=== PATIENT | female | born 1995 | race Caucasian/White ===

== ENCOUNTER → 2020-07-12 | Outpatient (REF) | payer OTHER ==
[2020-07-12 17:31] LABS: HEMATOCRIT 37.9 % (36.0-47.0); HEMOGLOBIN 12.5 g/dl (12.0-15.5); MEAN CORPUSCULAR HEMOGLOBIN 30.7 pg (27.0-33.0); MEAN CORPUSCULAR VOLUME 93.1 fl (80.0-96.0); PLATELET COUNT, AUTOMATED 385 10^3/uL (150-450); RED BLOOD COUNT 4.07 10^6/uL (4.00-5.40); WHITE BLOOD COUNT 11.2 10^3/uL (4.0-10.0)
[2020-07-12 18:41] LABS: HIV 1&2 SCREEN CENTAUR NEGATIVE (NEGATIVE)
== END ==
LOC: M PLALAB 15:50
PROVIDERS: ATTEND Obstetrics & Gynecology
DX: Z34.91 Encounter for supervision of normal pregnancy, unspecified, first trimester (principal)

== ENCOUNTER 2020-07-21 19:11 | Emergency (ER) | payer OTHER ==
[~2020-07-21] VITALS: Ht 157.5 cm; Wt 74.5 kg
[2020-07-21] MEDS ORDERED: PRENTAB7 PO (19:16)
[2020-07-21] MEDS ORDERED: NS 1,000 ML IV ONE ×2 (19:45→23:15)
[2020-07-21] MEDS ORDERED: ONDANSETRON 4MG/2ML VIAL IV ONE (20:00)
[2020-07-21 20:42] LABS: BASO % 0.2 % (0.0-1.0); EOS % 0.1 % (0.0-3.0); HEMATOCRIT 35.8 % (36.0-47.0); HEMOGLOBIN 11.9 g/dl (12.0-15.5); LYMPH # 0.8 10^3/uL (1.5-5.0); MEAN CORPUSCULAR HEMOGLOBIN 29.2 pg (27.0-33.0); MEAN CORPUSCULAR HGB CONC 33.2 g/dl (32.0-36.5); MONO # 0.2 10^3/uL (0.0-0.8); MONO % 0.9 % (0.0-5.0); NEUTROPHILS # 15.2 10^3/uL (1.5-8.5); NEUTROPHILS % 93.4 % (36.0-66.0); PLATELET COUNT, AUTOMATED 344 10^3/uL (150-450); RED BLOOD COUNT 4.07 10^6/uL (4.00-5.40); WHITE BLOOD COUNT 16.3 10^3/uL (4.0-10.0)
[2020-07-21 21:00] LABS: INR 0.94; PROTHROMBIN TIME 12.8 SECONDS (12.5-14.3)
[2020-07-21 21:25] LABS: PARTIAL THROMBOPLASTIN TIME 24.7 SECONDS (24.2-38.5)
[2020-07-21 21:36] LABS: ALT/SGPT 20 IU/L (0-32); BLOOD UREA NITROGEN 11 MG/DL (7-18); CALCIUM LEVEL 9.7 MG/DL (8.5-10.1); CARBON DIOXIDE LEVEL 22 mmol/L (20-29); CHLORIDE LEVEL 103 MEQ/L (98-107); CREATININE FOR GFR 0.62 MG/DL (0.55-1.30); GLOMERULAR FILTRATION RATE > 60.0 (>60); GLUCOSE, FASTING 133 MG/DL (70-100); LDH LACTATE DEHYDROGENASE 211 U/L (84-246); POTASSIUM SERUM 3.7 MEQ/L (3.5-5.1); SODIUM LEVEL 136 MEQ/L (136-145)
[2020-07-21 21:37] LABS: BILIRUBIN,DIRECT < 0.1 MG/DL (0.0-0.2); BILIRUBIN,TOTAL 0.3 MG/DL (0.2-1.0)
[2020-07-21 21:41] LABS: ALBUMIN 3.7 GM/DL (3.2-5.2); LIPASE 50 U/L (73-393); TOTAL PROTEIN 7.6 GM/DL (6.4-8.2)
[2020-07-21] MEDS ORDERED: PROMETHAZINE INJ 25 MG/ML VIAL (J2550) IV ONE (22:00)
[2020-07-21] MEDS ORDERED: ACETAMINOPHEN 500 MG TAB PO ONE (23:15)
[2020-07-21] MEDS ORDERED: METOCLOPRAMIDE INJ 10MG/2ML VIAL (J2765 PER 1) IV ONE (23:15)
[2020-07-22] MEDS ORDERED: REGL10TA6 PO (01:27)
[2020-07-22 01:37] VITALS: BP 124/64
[2020-07-23] MEDS ORDERED: ONDA4TAB6 PO (08:04)
[2020-07-23] MEDS ORDERED: ALBU8.5H INH (08:04)
[2020-07-23] MEDS ORDERED: FERR325T18 PO (08:04)
[2020-07-23] MEDS ORDERED: METO10TA2 PO (11:34)
== END 2020-07-22 02:00 | disposition home or self-care (01) ==
LOC: M ED 19:11
DX: O21.9 Vomiting of pregnancy, unspecified (principal); Z3A.12 12 weeks gestation of pregnancy
CPT/HCPCS: 80048; 80076; 81001; 83615; 83690; 84550; 85025; 85610; 85730; 96361; 96374; 96375; 99284; J2405; J2765

== ENCOUNTER 2020-07-23 07:53 | Inpatient (IN) | payer OTHER ==
[~2020-07-23] VITALS: Ht 157.5 cm; Wt 74.5 kg
[~2020-07-23 07:53] MED LIST: PRENTAB7 PO; REGL10TA6 PO
[2020-07-23] MEDS ORDERED: ALBU8.5H INH (08:04)
[2020-07-23] MEDS ORDERED: ONDA4TAB6 PO (08:04)
[2020-07-23] MEDS ORDERED: FERR325T18 PO (08:04)
[2020-07-23] MEDS ORDERED: NS 1,000 ML IV ONE (08:15)
[2020-07-23] MEDS ORDERED: ONDANSETRON 4MG/2ML VIAL IV ONE (08:15)
[2020-07-23 08:22] LABS: BASO # 0.1 10^3/uL (0.0-0.2); BASO % 0.5 % (0.0-1.0); EOS # 0.1 10^3/uL (0.0-0.5); EOS % 0.9 % (0.0-3.0); HEMATOCRIT 38.2 % (36.0-47.0); HEMOGLOBIN 12.4 g/dl (12.0-15.5); MEAN CORPUSCULAR HEMOGLOBIN 29.5 pg (27.0-33.0); MEAN CORPUSCULAR HGB CONC 32.5 g/dl (32.0-36.5); MONO # 0.4 10^3/uL (0.0-0.8); MONO % 2.7 % (0.0-5.0); NEUTROPHILS # 11.3 10^3/uL (1.5-8.5); NEUTROPHILS % 81.4 % (36.0-66.0); PLATELET COUNT, AUTOMATED 397 10^3/uL (150-450); WHITE BLOOD COUNT 13.9 10^3/uL (4.0-10.0)
[2020-07-23] MEDS ORDERED: METOCLOPRAMIDE INJ 10MG/2ML VIAL (J2765 PER 1) IV ONE ×2 (08:30→09:45)
[2020-07-23 09:02] LABS: ALBUMIN 3.7 GM/DL (3.2-5.2); ALT/SGPT 22 U/L (12-78); AMYLASE 38 U/L (25-115); BILIRUBIN,DIRECT 0.2 MG/DL (0.0-0.2); BILIRUBIN,TOTAL 0.5 MG/DL (0.2-1.0); BLOOD UREA NITROGEN 9 MG/DL (7-18); CALCIUM LEVEL 8.5 MG/DL (8.5-10.1); CARBON DIOXIDE LEVEL 21 MEQ/L (21-32); CHLORIDE LEVEL 105 MEQ/L (98-107); CREATININE FOR GFR 0.59 MG/DL (0.55-1.30); GLOMERULAR FILTRATION RATE > 60.0 (>60); GLUCOSE, FASTING 124 MG/DL (70-100); LIPASE 65 U/L (73-393); POTASSIUM SERUM 3.5 MEQ/L (3.5-5.1); SODIUM LEVEL 137 MEQ/L (136-145); TOTAL PROTEIN 7.2 GM/DL (6.4-8.2)
--- NOTE | 2020-07-23 09:42 | REP ---
INDICATION: abdl pain, hyperemesis gravidarum COMPARISON: None. TECHNIQUE: Transabdominal 1st trimester obstetrical ultrasound with color Doppler evaluation. FINDINGS: Single live early intrauterine is appreciated. Gestational sac with pole identified. [place]-rump length of 5.9 cm corresponds to 12 weeks 3 days gestational age with estimated date of delivery 02/01/2021. heart rate equals 152 beats per minute. No gross abnormalities are identified. IMPRESSION: Single live early intrauterine at 12 weeks 3 days gestational age. Complete anatomical assessment should be performed and 19-20 weeks. <Electronically signed by Angel Gasca > 07/23/20 [id number]
[2020-07-23] MEDS ORDERED: MAALOX 30 ML SUSP *UDC PO ONE (09:45)
[2020-07-23] MEDS ORDERED: D5W/LR 1,000 ML IV ONE (10:30)
[2020-07-23] MEDS ORDERED: ONDANSETRON 4 MG ORAL DISINTEGRATING TAB PO PRN (11:30)
[2020-07-23] MEDS ORDERED: DOCUSATE SODIUM 100MG CAPSULE PO PRN (11:30)
[2020-07-23] MEDS ORDERED: METO10TA2 PO (11:34)
[2020-07-23 12:44] LABS: RSV AMPLIFICATION NEGATIVE (NEGATIVE)
[2020-07-23] MEDS: ACETAMINOPHEN 500 MG TAB PO PRN (13:41)
[2020-07-23] MEDS: LR 1,000 ML IV SCH (15:51)
[2020-07-23] MEDS ORDERED: PROMETHAZINE INJ 25 MG/ML VIAL (J2550) IV ONE (16:00)
[2020-07-23] MEDS: ONDANSETRON 4MG/2ML VIAL IV PRN (18:45)
[2020-07-23 18:50] VITALS: BP 176/100
[2020-07-23 19:00] VITALS: BP 181/102
[2020-07-23] MEDS: PROMETHAZINE INJ 25 MG/ML VIAL (J2550) IV PRN (20:34)
[2020-07-23 20:39] VITALS: BP 151/93
[2020-07-23 21:30] VITALS: BP 141/82
[2020-07-23 23:05] VITALS: BP 160/100
[2020-07-23] MEDS: METOCLOPRAMIDE INJ 10MG/2ML VIAL (J2765 PER 1) IV PRN (23:40)
[2020-07-24] MEDS: ONDANSETRON 4MG/2ML VIAL IV PRN ×2 (01:48→19:20)
[2020-07-24] MEDS: LR 1,000 ML IV SCH ×3 (01:49→19:22)
[2020-07-24] MEDS: PROMETHAZINE INJ 25 MG/ML VIAL (J2550) IV PRN (02:40)
[2020-07-24 03:00] VITALS: BP 150/81
--- NOTE | 2020-07-24 04:38 | HPEPDOC ---
General Date of Admission Jul 23, 2020 at 11:22 Date of Service: Jul 24, 2020 Attending Physician: ARACELY MEYERS MD. Chief Complaint The patient is a 24-year-old female admitted with a reason for visit of Hyperemesis Gravidarum. Source: Patient Exam Limitations: No limitations Timing/Duration: Day(s) (3) Severity: Severe Associated Symptoms: Nausea, Vomiting History of Present Illness Hopes 24-year-old 5 para 2 who presented at 39 weeks 6 days estimated ge stational age with nausea and vomiting. She reports that her nausea vomiting started several days ago that has not improve has worsened. She's been unable to tolerate any foods or liquids. AT that point her course is unremarkable she is initiated care. She denies any fever or chills or diarrhea. Home Medications Scheduled Ferrous Sulfate (Ferrous Sulfate) 325 Mg Tablet, 325 MG PO DAILY, (Reported) Pnv No.95/Ferrous Fum/Folic AC ( Vitamins Tablet) 1 Each Tablet, 1 TAB PO DAILY, (Reported) Scheduled PRN Albuterol Sulfate (Albuterol Sulfate Hfa) 8.5 Gm Hfa.aer.ad, 2 PUFFS INH Q4HP PRN for SHORTNESS OF BREATH, (Reported) Metoclopramide HCl (Metoclopramide HCl) 10 Mg Tablet, 10 MG PO Q6H PRN for NAUSEA OR VOMITING, (Reported) Ondansetron (Ondansetron Odt) 4 Mg Tab.rapdis, 1 TAB PO Q6HP PRN for NAUSEA, (Reported) Allergies Coded Allergies: No Known Allergies (Unverified , 07/21/20) Past Medical History Medical History None Surgical History None Family History Significant Family History: No pertinent family hx Social History * Smoker: Denies Alcohol: Denies Drugs: denies Psychosocial History: No pertinent psych hx A-FIB/CHADSVASC A-FIB History Current/History of A-Fib/PAF?: No Current PO Anticoag Therapy: No Age/Risk Factor Scoring CHADSVASC: CHADSVASC Response (Comments) Value Age Risk Factor Age < 65 years old 0 Gender Risk Factor Female 1 Hx of CHF No 0 Hx of HTN No 0 Hx of Stroke/TIA/or VTE No 0 Hx of Diabetes No 0 Hx of Vascular Disease No 0 Total 1 Treatment Treatment ordered: NONE Reason Anticoagulant not given: Current bleeding Review of Systems Gastrointestinal: Reports: Nausea, Vomiting Vital Signs Vital Signs Date Time Temp Pulse Resp B/P (MAP) Pulse Ox O2 Delivery O2 Flow Rate FiO2 07/24/20 03:00 98.7 70 20 150/81 (104) 07/23/20 23:05 100 Room Air Laboratory Data Labs 24H Laboratory Tests 2 07/23/20 08:11: Immature Granulocyte % (Auto) 0.5, Neutrophils (%) (Auto) 81.4H, Lymphocytes (%) (Auto) 14.0L, Monocytes (%) (Auto) 2.7, Eosinophils (%) (Auto) 0.9, Basophils (%) (Auto) 0.5, Neutrophils # (Auto) 11.3H, Lymphocytes # (Auto) 2.0, Monocytes # (Auto) 0.4, Eosinophils # (Auto) 0.1, Basophils # (Auto) 0.1, Nucleated Red Blood Cells % (auto) 0.0, Anion Gap 11, Glomerular Filtration Rate > 60.0, Calcium Level 8.5, Total Bilirubin 0.5#, Direct Bilirubin 0.2, Aspartate Amino Transf (AST/SGOT) 19, Alanine Aminotransferase (ALT/SGPT) 22, Alkaline Phosphatase 37L, Total Protein 7.2, Albumin 3.7, Albumin/Globulin Ratio 1.1L, Amylase Level 38, Lipase 65L 07/23/20 09:22: Urine Color YELLOW, Urine Appearance CLOUDYH, Urine pH 8.0, Urine Specific [place] 1.014, Urine Protein NEGATIVE, Urine Glucose (UA) NEGATIVE, Urine Ketones 2+H, Urine Blood NEGATIVE, Urine Nitrite NEGATIVE, Urine Bilirubin NEGATIVE, Urine Urobilinogen 0.2, Urine Leukocyte Esterase TRACEH, Urine WBC (Auto) 5H, Urine RBC (Auto) 2, Urine Hyaline Casts (Auto) 0, Urine Bacteria (Auto) NEGATIVE, Urine Squamous Epithelial Cells 11, Urine Amorphous Sediment SMALLH, Urine Mucus (Auto) SMALL, Urine Sperm (Auto) 07/23/20 11:46: Coronavirus (COVID-19)(PCR) NEGATIVE, Influenza Type A (RT-PCR) NEGATIVE, Influenza Type B (RT-PCR) NEGATIVE, Respiratory Syncytial Virus (PCR) NEGATIVE CBC/BMP Laboratory Tests 07/23/20 08:11 Microbiology Microbiology 07/23/20 Urine Culture, Received Pending Assessment/Plan 24-year-old 5 para 2 at 13 weeks this days with hyperemesis gravidarum. Plan is for antiemetics and IV hydration Plan / VTE VTE Prophylaxis Ordered?: No Plan IVF: Continue Diet: Advance Activity: Encourage Ambulation ARACELY MEYERS MD. Jul 24, 2020 04:38
[2020-07-24 06:00] VITALS: BP 141/80
[2020-07-24] MEDS: METOCLOPRAMIDE INJ 10MG/2ML VIAL (J2765 PER 1) IV PRN ×3 (06:21→18:27)
[2020-07-24 08:10] LABS: HEMATOCRIT 32.2 % (36.0-47.0); HEMOGLOBIN 10.7 g/dl (12.0-15.5); MEAN CORPUSCULAR HEMOGLOBIN 29.6 pg (27.0-33.0); MEAN CORPUSCULAR HGB CONC 33.2 g/dl (32.0-36.5); PLATELET COUNT, AUTOMATED 310 10^3/uL (150-450); RED BLOOD COUNT 3.62 10^6/uL (4.00-5.40); WHITE BLOOD COUNT 12.6 10^3/uL (4.0-10.0)
[2020-07-24] MEDS: PRENATAL VITAMINS CHEWABLE TABLET PO SCH (09:00)
[2020-07-24] MEDS: PROMETHAZINE 25 MG TAB PO PRN ×3 (09:22→22:49)
[2020-07-24 10:00] VITALS: BP 127/92
[2020-07-24] MEDS: ACETAMINOPHEN 500 MG TAB PO PRN (12:35)
--- NOTE | 2020-07-24 13:28 | IPNPDOC ---
Text Note Date of Service The patient was seen on 07/24/20. NOTE Subjective: Patient reports she is feeling much better. States she has been able to keep down water and jello. Desires to order food. She reports she hasn't vomited since this morning. Denies vaginal bleeding. States she feels like the PO phenergan is working the best right now. She has rectal phenergan at home that was prescribed. Reports some burning in her chest when she lays down at night. Objective: See labs and VS. Noted multiple elevated BPs since patient has been admitted. A+Ox3. IV present and running at 125 cc/hr. Respiratory rate is regular without use of accessory muscles. Mucous membranes appear moist (lips and mouth). Assessment: IUP at 12+ weeks gestation, hyperemesis gravidum, consider CHTN for diagnosis Plan: Continue with IV hydration, PO phenergan, IV Zofran. Pepcid PO ordered for heartburn. Patient to order bland diet. Encouraged small bland meals right now. [place], bananas, and apple sauce ordered for lunch. Reviewed that if she can eat this and keep it down then she can order a regular diet with bland foods and if she can keep her dinner down she may be discharged to home. Preeclamptic labs were already ordered yesterday. Spot urine ordered for baseline. Will consider CHTN as a diagnosis. VS,Fishbone, I+O VS, Fishbone, I+O Laboratory Tests 07/24/20 07:55 Vital Signs Date Time Temp Pulse Resp B/P (MAP) Pulse Ox O2 Delivery O2 Flow Rate FiO2 07/24/20 10:00 98.6 75 14 127/92 (104) 98 Room Air I&O- Last 24 Hours up to 6 AM 07/24/20 06:00 Intake Total 1825 ml Output Total 1250 ml Balance 575 ml JARED BONILLA CNM Jul 24, 2020 13:28
[2020-07-24 16:00] VITALS: BP 144/87
[2020-07-24 18:00] VITALS: BP 144/87
[2020-07-24 20:07] LABS: CREATININE,RANDOM URINE 68.8 MG/DL; TOTAL PROTEIN,RANDOM URINE 15.7 MG/DL (0.0-12.0)
[2020-07-24 20:27] LABS: FREE T4 1.47 NG/DL (0.76-1.46); THYROID STIMULATING HORMONE 1.77 uIU/ML (0.358-3.740)
[2020-07-24] MEDS: FAMOTIDINE 20 MG TAB PO SCH (20:33)
[2020-07-25] VITALS (8 sets, daily range): BP systolic 140–201; BP diastolic 83–98
[2020-07-25] MEDS: ACETAMINOPHEN 500 MG TAB PO PRN (00:24)
[2020-07-25] MEDS: METOCLOPRAMIDE INJ 10MG/2ML VIAL (J2765 PER 1) IV PRN ×2 (00:29→07:54)
[2020-07-25] MEDS: ONDANSETRON 4MG/2ML VIAL IV PRN (03:06)
[2020-07-25] MEDS: LR 1,000 ML IV SCH ×3 (03:25→16:48)
[2020-07-25] MEDS: PROMETHAZINE 25 MG TAB PO PRN (05:29)
--- NOTE | 2020-07-25 06:48 | IPNPDOC ---
Text Note Date of Service The patient was seen on 07/25/20. NOTE Subjective: Ivone has done well throughout the night. She reports that she has not vomited since last night after dinner but still feels bad overall. She reports that milk is a trigger for her to vomit now. Reports chest burning has not improved with keeping the HOB elevated, but the shower does help with the chest burning and she desires a shower this morning. Objective: dopp tones 150s this morning, per patient request. Alert and oriented x3. Mouth and lips moist, no lesions or sores noted. Respiratory rate regular, no accessory muscle use. Abdomen soft, nontender. No edema, no calf tenderness. See labs and I&O. BPs remain elevated, will continue to monitor for chronic hypertension. Assessment: Day 2 admission for hyperemesis gravidarum, IUP at 12+ weeks, considering diagnosis of chronic hypertension. Plan: Shower this AM, continue with prescribed medications. [place] diet, avoidance of triggers reviewed with patient. She desires discharge home if she is able to keep down bland foods today. Will consider starting on PO medications for CHTN. VS,Fishbone, I+O VS, Fishbone, I+O Laboratory Tests 07/24/20 07:55 Vital Signs Date Time Temp Pulse Resp B/P (MAP) Pulse Ox O2 Delivery O2 Flow Rate FiO2 07/25/20 02:05 98.7 80 18 140/98 (112) 99 Room Air I&O- Last 24 Hours up to 6 AM 07/25/20 06:00 Intake Total 1800 ml Output Total 1725 ml Balance 75 ml JARED BONILLA CNM Jul 25, 2020 06:42
[2020-07-25] MEDS ORDERED: LABETALOL 200 MG TAB PO SCH (09:00)
[2020-07-25] MEDS: PRENATAL VITAMINS CHEWABLE TABLET PO SCH (09:00)
[2020-07-25] MEDS ORDERED: MULTIVITAMIN -ADULT INJECTION 10 ML, THIAMINE INJection 100 MG, FOLIC ACID 1 MG in NS 1... IV ONE (11:00)
[2020-07-25] MEDS ORDERED: FAMOTIDINE IV BAG 20 MG in IV 1 EA IV ONE (11:00)
[2020-07-25] MEDS: PROMETHAZINE 25MG SUPP PR PRN ×2 (16:21→23:18)
[2020-07-25] MEDS: LABETALOL 100 MG TAB PO SCH (17:32)
[2020-07-25] MEDS: FAMOTIDINE 20 MG TAB PO SCH (20:06)
[2020-07-26] VITALS (10 sets, daily range): BP systolic 134–162; BP diastolic 73–100
[2020-07-26] MEDS: LR 1,000 ML IV SCH ×3 (04:14→19:22)
[2020-07-26] MEDS: ACETAMINOPHEN 500 MG TAB PO PRN ×2 (05:00→16:58)
[2020-07-26] MEDS: PROMETHAZINE 25MG SUPP PR PRN ×2 (07:53→16:03)
[2020-07-26] MEDS: PRENATAL VITAMINS CHEWABLE TABLET PO SCH (10:07)
[2020-07-26] MEDS: LABETALOL 100 MG TAB PO SCH ×2 (10:08→20:37)
[2020-07-26] MEDS ORDERED: SUCRALFATE SUSP 1GM/10ML UD PO ONE (12:00)
[2020-07-26] MEDS: SUCRALFATE SUSP 1GM/10ML UD PO SCH ×2 (17:52→23:03)
[2020-07-26] MEDS: FAMOTIDINE 20 MG TAB PO SCH (20:36)
[2020-07-27 02:53] VITALS: BP 146/82
[2020-07-27] MEDS: LR 1,000 ML IV SCH ×2 (03:22→10:03)
[2020-07-27] MEDS: SUCRALFATE SUSP 1GM/10ML UD PO SCH ×2 (05:37→11:38)
[2020-07-27 06:26] VITALS: BP 148/88
[2020-07-27] MEDS ORDERED: hydrOXYzine 50 MG TAB PO ONE (06:45)
[2020-07-27] MEDS ORDERED: ONDANSETRON 4 MG ORAL DISINTEGRATING TAB SL PRN (06:45)
[2020-07-27 08:00] LABS: ALBUMIN 3.2 GM/DL (3.2-5.2); ALT/SGPT 26 U/L (12-78); ALT/SGPT 28 U/L (12-78); BILIRUBIN,TOTAL 0.5 MG/DL (0.2-1.0); BLOOD UREA NITROGEN 6 MG/DL (7-18); CARBON DIOXIDE LEVEL 23 MEQ/L (21-32); CHLORIDE LEVEL 102 MEQ/L (98-107); CREATININE FOR GFR 0.41 MG/DL (0.55-1.30); GLOMERULAR FILTRATION RATE > 60.0 (>60); GLUCOSE, FASTING 92 MG/DL (70-100); LDH LACTATE DEHYDROGENASE 134 U/L (84-246); SODIUM LEVEL 135 MEQ/L (136-145); TOTAL PROTEIN 6.9 GM/DL (6.4-8.2); URIC ACID 5.4 MG/DL (2.6-6.0)
[2020-07-27 08:02] LABS: HEMATOCRIT 33.2 % (36.0-47.0); HEMOGLOBIN 10.9 g/dl (12.0-15.5); MEAN CORPUSCULAR HEMOGLOBIN 29.2 pg (27.0-33.0); MEAN CORPUSCULAR HGB CONC 32.8 g/dl (32.0-36.5); PLATELET COUNT, AUTOMATED 369 10^3/uL (150-450); RED BLOOD COUNT 3.73 10^6/uL (4.00-5.40); WHITE BLOOD COUNT 12.5 10^3/uL (4.0-10.0)
[2020-07-27 08:59] VITALS: BP 147/86
[2020-07-27] MEDS: LABETALOL 100 MG TAB PO SCH (08:59)
[2020-07-27] MEDS: PRENATAL VITAMINS CHEWABLE TABLET PO SCH (09:00)
[2020-07-27] MEDS: PROMETHAZINE 25MG SUPP PR PRN (09:00)
[2020-07-27] MEDS ORDERED: LABETALOL 100MG/20ML VIAL As Ordered ONE (09:04)
[2020-07-27 09:56] VITALS: BP 147/86
[2020-07-27 16:04] LABS: CREATININE,RANDOM URINE 47.8 MG/DL; TOTAL PROTEIN,RANDOM URINE 20.1 MG/DL (0.0-12.0)
--- NOTE | 2020-07-28 08:52 | DSES ---
DISCHARGE SUMMARY DATE OF ADMISSION: 07/23/2020 DATE OF DISCHARGE: 07/27/2020 DISCHARGE DIAGNOSIS: Hyperemesis gravidarum resolving. HISTORY: Ivone is a 24-year-old, 5, para 2 who presented at 12+ weeks to the emergency room multiple times with severe nausea and vomiting. She reports her nausea started several days ago and has gotten worse over time. She was unable to tolerate any food or liquids. At that point, her care had been unremarkable. She did deny fever, chills, diarrhea. Throughout her hospital stay, multiple combinations of antiemetics were utilized for managing her severe nausea and vomiting. This morning, upon the initial evaluation a discussion was made to keep the patient another day as she was still vomiting this morning, had not eaten since yesterday. She did, however, refuse her antiemetic medication on the evening of 07/26/2020. Approximately at 1300 hours, she requested discharge home due to the holiday. She stated she would continue to use her prescribed antiemetic medications. She did tolerate by mouth fluids and crackers this morning after consenting to take her antiemetic medications and she did keep them down. She had not vomited in the last 5 hours prior to discharge. OBJECTIVE: Vital signs stable, temperature 98.8, pulse 81, respirations 14, blood pressure 147/86. Of note, she has been diagnosed with chronic hypertension during this hospital stay and is currently on labetalol 300 mg by mouth twice a day. Her laboratory values are stable. CBC: Hemoglobin 10.9, hematocrit 33.2, platelets 369. Baseline preeclamptic labs are normal, AST of 7, ALT 28, alkaline phosphatase 33, creatinine is 0.4, potassium 3. She is alert and oriented times three. She has been resting. She did get a couple hours of sleep this morning. PLAN: Discharge the patient to home. Prescription has been e-prescribed for labetalol 300 mg by mouth twice a day. She currently has Zofran ODT at home as well as Phenergan suppositories to use as needed for her nausea and vomiting. A long discussion ensued related to palliative measures, the importance of small, frequent, simple carbohydrate meals, fluids with some glucose to maintain caloric intake. She is to keep her next scheduled appointment. I did review danger signs and access to care. The patient has had all of her questions answered and desires discharge home.
== END 2020-07-27 15:17 | disposition home or self-care (01) | DRG 566 ==
LOC: M ED 07:53 → OBSVTOIN 11:22 → M ED INP 11:22 → M OBS 18:20
PROVIDERS: ADMIT Obstetrics & Gynecology; ATTEND Advanced Practice Midwife
DX: O21.0 Mild hyperemesis gravidarum (principal); Z3A.12 12 weeks gestation of pregnancy; O10.011 Pre-existing essential hypertension complicating pregnancy, first trimester; Z20.828 Contact with and (suspected) exposure to other viral communicable diseases

== ENCOUNTER → 2020-08-30 | Outpatient (CLI) | payer OTHER ==
[~2020-08-30] MED LIST changes: +ALBU8.5H INH; +FERR325T18 PO; +METO10TA2 PO; +ONDA4TAB6 PO
--- NOTE | 2020-08-31 05:32 | REP ---
INDICATION: ANATOMY COMPARISON: None. TECHNIQUE: Transabdominal obstetrical ultrasound with color Doppler evaluation. FINDINGS: Examination demonstrates a single live intrauterine in cephalic presentation. motion is identified by technologist. Placenta is noted anterior and grade 1 without evidence for placenta previa or abruption. Amniotic fluid volume is normal. Cervix measures 3.2 cm in length and appears closed.. Gestational age by LMP 18 weeks 0 days with NILSON 01/31/2021. Gestational age by current measurements 17 weeks 6 days with NILSON 02/01/2021. FHR equals 142 beats per minute. BPD: 3.7 cm 17 weeks 3 days HC: 14.0 cm 17 weeks 2 days AC: 11.7 cm 17 weeks 3 days FL: 2.8 cm 18 weeks 5 days HL: 2.6 cm 18 weeks 2 days HC/AC: 1.19 Estimated weight 217 grams (43rdpercentile). Anatomical assessment demonstrates normal structures including cranium, choroid plexus, cavum, cerebellum/posterior fossa, diaphragm, stomach, cord insertion/three-vessel cord, kidneys/bladder, spine, and extremities. IMPRESSION: Single live intrauterine in cephalic presentation demonstrating appropriate estimated weight and growth. Limited evaluation of the facial features and heart/ventricular outflow tracts. <Electronically signed by Angel Gasca > 08/31/20 [id number]
== END ==
LOC: M WHC 13:22
PROVIDERS: ATTEND Advanced Practice Midwife
DX: Z34.82 Encounter for supervision of other normal pregnancy, second trimester (principal); Z3A.17 17 weeks gestation of pregnancy

== ENCOUNTER 2021-10-27 06:24 | Outpatient (CLI) | payer OTHER ==
[~2021-10-27] VITALS: Ht 157.5 cm; Wt 77.6 kg
[2021-10-27] VITALS (26 sets, daily range): BP systolic 122–193; BP diastolic 71–128
[2021-10-27] MEDS ORDERED: ASPI81CH33 PO (06:50)
[2021-10-27] MEDS ORDERED: PROC60TA PO (06:50)
[2021-10-27] MEDS ORDERED: HOME MED LIST COMPLETE! XX SCH (07:00)
[2021-10-27] MEDS ORDERED: LR 1,000 ML IV SCH (07:15)
[2021-10-27] MEDS ORDERED: LACTATED RINGER'S 1000 ML IV ONE (07:15)
[2021-10-27 07:52] LABS: BASO % 0.2 % (0.0-1.0); EOS % 0.1 % (0.0-3.0); HEMATOCRIT 31.6 % (36.0-47.0); HEMOGLOBIN 10.6 g/dl (12.0-15.5); LYMPH # 1.5 10^3/uL (1.5-5.0); MEAN CORPUSCULAR HGB CONC 33.5 g/dl (32.0-36.5); MEAN CORPUSCULAR VOLUME 86.6 fl (80.0-96.0); MONO # 0.5 10^3/uL (0.0-0.8); MONO % 3.6 % (2.0-8.0); NEUTROPHILS # 10.4 10^3/uL (1.5-8.5); NEUTROPHILS % 83.6 % (36.0-66.0); PLATELET COUNT, AUTOMATED 360 10^3/uL (150-450); RED BLOOD COUNT 3.65 10^6/uL (4.00-5.40); WHITE BLOOD COUNT 12.4 10^3/uL (4.0-10.0)
[2021-10-27 08:19] LABS: ALBUMIN 3.3 GM/DL (3.2-5.2); ALT/SGPT 33 U/L (12-78); BILIRUBIN,TOTAL 0.3 MG/DL (0.2-1.0); BLOOD UREA NITROGEN 6 MG/DL (7-18); CALCIUM LEVEL 8.4 MG/DL (8.5-10.1); CARBON DIOXIDE LEVEL 26 MEQ/L (21-32); CHLORIDE LEVEL 106 MEQ/L (98-107); GLOMERULAR FILTRATION RATE > 60.0 (>60); GLUCOSE, FASTING 118 MG/DL (70-100); POTASSIUM SERUM 3.2 MEQ/L (3.5-5.1); SODIUM LEVEL 140 MEQ/L (136-145); TOTAL PROTEIN 6.6 GM/DL (6.4-8.2)
[2021-10-27 08:53] LABS: AMORPHOUS SEDIMENT SMALL (NEGATIVE); APPEARANCE, URINE CLOUDY (CLEAR); BACTERIA, URINE AUTO 2+ (NEGATIVE); BILIRUBIN, URINE AUTO NEGATIVE (NEGATIVE); BLOOD, URINE BLOOD NEGATIVE (NEGATIVE); COLOR, URINE AMBER (YELLOW); GLUCOSE, URINE (UA) AUTO NEGATIVE (NEGATIVE); KETONE, URINE AUTO 2+ mg/dL (NEGATIVE); LEUKOCYTE ESTERASE, URINE AUTO 3+ (NEGATIVE); MUCUS, URINE SMALL (NEGATIVE); NITRITE, URINE AUTO NEGATIVE (NEGATIVE); PROTEIN, URINE AUTO 1+ mg/dL (NEGATIVE); RBC, URINE AUTO 0 /HPF (0-3); SPECIFIC GRAVITY URINE AUTO 1.016 (1.002-1.035); SQUAMOUS EPITHELIAL CELL UR AU 7 /HPF (0-6); TRANSITIONAL EPITHELIAL AUTO 1 /HPF; UROBILINOGEN, URINE AUTO 0.2 mg/dL (0.0-2.0); WBC, URINE AUTO 13 /HPF (0-3)
[2021-10-27] MEDS ORDERED: NIFEdipine 30 MG XL TAB PO SCH (09:00)
[2021-10-27] MEDS ORDERED: BICITRA 30ML SOLN UDC PO ONE (09:40)
[2021-10-27] MEDS ORDERED: ceFAZolin SOD 2 GM in IV 1 EA IV ONE (09:40)
[2021-10-27] MEDS ORDERED: BICITRA 30ML SOLN UDC As Ordered ONE (09:40)
[2021-10-27] MEDS ORDERED: OMEP40CA4 PO (09:44)
[2021-10-27 11:38] LABS: AMPHETAMINES URINE REFLEX NEGATIVE (NEGATIVE); BARBITURATES URINE REFLEX NEGATIVE (NEGATIVE); BENZODIAZEPINES URINE REFLEX NEGATIVE (NEGATIVE); COCAINE METABOLITE URINE REFLE NEGATIVE (NEGATIVE); METHADONE URINE REFLEX NEGATIVE (NEGATIVE); OPIATES URINE REFLEX NEGATIVE (NEGATIVE); PHENCYCLIDINE URINE REFLEX NEGATIVE (NEGATIVE)
[2021-10-27 11:43] LABS: CANNABINOIDS URINE REFLEX PENDING CONFIRMATION (NEGATIVE)
[2021-10-27 11:54] LABS: URIC ACID 5.4 MG/DL (2.6-6.0)
[2021-10-27 12:23] LABS: TOTAL PROTEIN,RANDOM URINE 33.4 MG/DL (0.0-12.0)
[2021-10-27] MEDS ORDERED: MULTIVITAMIN -ADULT INJECTION 10 ML, THIAMINE INJection 100 MG, FOLIC ACID 1 MG in NS 1... IV ONE (13:00)
[2021-10-27] MEDS ORDERED: ONDANSETRON 4MG TAB PO ONE (16:10)
== END 2021-10-27 17:18 | disposition home or self-care (01) ==
LOC: M LDO 06:24
PROVIDERS: ATTEND Obstetrics & Gynecology
DX: O21.2 Late vomiting of pregnancy (principal); Z3A.25 25 weeks gestation of pregnancy; O26.892 Other specified pregnancy related conditions, second trimester; R10.13 Epigastric pain
CPT/HCPCS: 76705; 80053; 80307; 81001; 82570; 84156; 84550; 85025; 87798; 96361; 96365; 96366; 96367; G0480; J0690; J3411

== ENCOUNTER → 2022-01-16 | Outpatient (REF) | payer OTHER, MEDICAID ==
[~2022-01-16] MED LIST changes: +ASPI81CH33 PO; +OMEP40CA4 PO; +PROC60TA PO
== END ==
LOC: M SFHCWAGY 09:56
PROVIDERS: ATTEND Specialist
DX: Z34.83 Encounter for supervision of other normal pregnancy, third trimester (principal)

== ENCOUNTER 2022-01-30 08:35 | Inpatient (IN) | payer OTHER, MEDICAID ==
[~2022-01-30] VITALS: Ht 154.9 cm; Wt 78.3 kg
[2022-01-30] VITALS (31 sets, daily range): BP systolic 117–190; BP diastolic 69–113
[2022-01-30] MEDS ORDERED: MVI -ADULT INJECTION 10ML VIAL IV ONE (09:15)
[2022-01-30] MEDS ORDERED: LACTATED RINGER'S 1000 ML IV ONE (09:15)
[2022-01-30] MEDS ORDERED: PROMETHAZINE 25MG/ML 1ML VIAL IV ONE ×2 (09:15→17:10)
[2022-01-30 10:25] LABS: HEMATOCRIT 32.6 % (36.0-47.0); HEMOGLOBIN 10.5 g/dl (12.0-15.5); MEAN CORPUSCULAR HEMOGLOBIN 27.1 pg (27.0-33.0); MEAN CORPUSCULAR HGB CONC 32.2 g/dl (32.0-36.5); MEAN CORPUSCULAR VOLUME 84.2 fl (80.0-96.0); PLATELET COUNT, AUTOMATED 372 10^3/uL (150-450); RED BLOOD COUNT 3.87 10^6/uL (4.00-5.40); WHITE BLOOD COUNT 12.8 10^3/uL (4.0-10.0)
[2022-01-30 10:46] LABS: APPEARANCE, URINE HAZY (CLEAR); BACTERIA, URINE AUTO NEGATIVE (NEGATIVE); BILIRUBIN, URINE AUTO NEGATIVE (NEGATIVE); BLOOD, URINE BLOOD NEGATIVE (NEGATIVE); COLOR, URINE YELLOW (YELLOW); GLUCOSE, URINE (UA) AUTO NEGATIVE (NEGATIVE); KETONE, URINE AUTO 2+ mg/dL (NEGATIVE); LEUKOCYTE ESTERASE, URINE AUTO TRACE (NEGATIVE); MUCUS, URINE SMALL (NEGATIVE); NITRITE, URINE AUTO NEGATIVE (NEGATIVE); PROTEIN, URINE AUTO NEGATIVE (NEGATIVE); RBC, URINE AUTO 1 /HPF (0-3); SPECIFIC GRAVITY URINE AUTO 1.015 (1.002-1.035); SQUAMOUS EPITHELIAL CELL UR AU 1 /HPF (0-6); UROBILINOGEN, URINE AUTO 0.2 mg/dL (0.0-2.0); WBC, URINE AUTO 2 /HPF (0-3)
[2022-01-30] MEDS ORDERED: MULTIVITAMIN -ADULT INJECTION 10 ML in LR 1,000 ML IV SCH (11:00)
[2022-01-30 11:01] LABS: ALBUMIN 3.2 GM/DL (3.2-5.2); ALT/SGPT 48 U/L (12-78); BILIRUBIN,TOTAL 0.5 MG/DL (0.2-1.0); BLOOD UREA NITROGEN 7 MG/DL (7-18); CALCIUM LEVEL 8.8 MG/DL (8.5-10.1); CARBON DIOXIDE LEVEL 20 MEQ/L (21-32); CHLORIDE LEVEL 107 MEQ/L (98-107); CREATININE FOR GFR 0.68 MG/DL (0.55-1.30); GLOMERULAR FILTRATION RATE > 60.0 (>60); GLUCOSE, FASTING 133 MG/DL (70-100); POTASSIUM SERUM 3.5 MEQ/L (3.5-5.1); SODIUM LEVEL 139 MEQ/L (136-145)
[2022-01-30 13:25] LABS: TOTAL PROTEIN,RANDOM URINE 28.6 MG/DL (0.0-12.0)
[2022-01-30] MEDS ORDERED: OXYTOCIN INJ 10 UNITS/ML VIAL (J2590) IM PRN (14:25)
[2022-01-30] MEDS ORDERED: LIDOCAINE 1% MDV 20ML VIAL INFIL PRN (14:25)
[2022-01-30] MEDS ORDERED: OXYTOCIN DRIP 30 UNITS in IV 1 EA IV PRN ×4 (14:25)
[2022-01-30] MEDS ORDERED: CARBOPROST TROMETHAMINE 250 MCG/ML AMP IM PRN (14:25)
[2022-01-30] MEDS ORDERED: TRANEXAMIC ACID INJection 1,000 MG in NS 100 ML IV PRN (14:25)
[2022-01-30] MEDS ORDERED: LABETALOL 100MG/20ML VIAL IV STA ×2 (14:27→15:30)
[2022-01-30] MEDS ORDERED: OXYTOCIN DRIP 30 UNITS in IV 1 EA IV SCH (15:30)
[2022-01-30] MEDS ORDERED: LR 1,000 ML IV SCH (15:30)
[2022-01-30 17:07] LABS: GC DNA AMPLIFICATION NEGATIVE (NEGATIVE)
[2022-01-30] MEDS ORDERED: BUTORPHANOL 2 MG/ML INJ (J0595) IV ONE (17:10)
[2022-01-30 21:15] LABS: HIV 1&2 SCREEN CENTAUR NEGATIVE (NEGATIVE)
[2022-01-30] MEDS ORDERED: IBUPROFEN 600MG TAB PO PRN (21:30)
[2022-01-30] MEDS ORDERED: DOCUSATE SODIUM 100MG CAPSULE PO PRN (21:30)
[2022-01-30] MEDS ORDERED: ACETAMINOPHEN TAB 650MG DOSE (2X325MG) PO PRN (21:30)
[2022-01-30] MEDS ORDERED: RHOGAM 300 MCG (1500 IU) INJ (J2790) IM SCH (21:30)
[2022-01-30] MEDS: IBUPROFEN 800 MG TAB PO PRN (22:33)
[2022-01-30] MEDS: PROMETHAZINE 25MG SUPP PR PRN (23:48)
[2022-01-31 00:05] VITALS: BP 165/82
[2022-01-31 01:15] VITALS: BP 132/60
[2022-01-31] MEDS: DIBUCAINE 1% OINTMENT 30GM TOP PRN ×2 (04:04→12:49)
[2022-01-31 06:00] VITALS: BP 164/88
[2022-01-31] MEDS: IBUPROFEN 800 MG TAB PO PRN ×2 (06:37→16:51)
[2022-01-31] MEDS: PROMETHAZINE 25MG SUPP PR PRN (06:37)
[2022-01-31] MEDS: PRENATAL VITAMINS CHEWABLE TABLET PO SCH (09:00)
[2022-01-31] MEDS: ACETAMINOPHEN 500 MG TAB PO PRN ×2 (11:26→21:02)
[2022-01-31] MEDS: ONDANSETRON 4MG ORAL DISINTEGRATING TAB PO PRN ×2 (12:49→19:23)
[2022-01-31 18:00] VITALS: BP 162/92
[2022-01-31] MEDS: LABETALOL 200 MG TAB PO SCH (19:24)
[2022-01-31 20:00] VITALS: BP 130/80
[2022-02-01] VITALS (28 sets, daily range): BP systolic 99–184; BP diastolic 56–111
[2022-02-01] MEDS: ONDANSETRON 4MG ORAL DISINTEGRATING TAB PO PRN (07:49)
[2022-02-01] MEDS ORDERED: LABETALOL 100MG/20ML VIAL IV STA (08:08)
[2022-02-01] MEDS: PRENATAL VITAMINS CHEWABLE TABLET PO SCH (08:21)
[2022-02-01] MEDS: LABETALOL 200 MG TAB PO SCH ×2 (08:47→20:43)
[2022-02-01] MEDS ORDERED: MEASLES,MUMPS,RUBELLA VACCINE INJ (MMR-II) (90707) SC.IMMUN ONE (09:00)
[2022-02-01] MEDS ORDERED: NIFEdipine 10 MG CAP PO STA (10:20)
[2022-02-01] MEDS ORDERED: CALCIUM GLUCONATE 1,000 MG in D5W MINI-BAG PLUS 100 ML IV PRN (10:20)
[2022-02-01] MEDS ORDERED: MAG Sulf (L&D) 4 GM/100 ML 4 GM in IV 1 EA IV ONE (10:30)
[2022-02-01] MEDS ORDERED: MAG Sulf (OBGYN) 20GM/500ML 20,000 MG in IV 1 EA IV SCH (11:00)
[2022-02-01 11:15] LABS: HEMATOCRIT 32.6 % (36.0-47.0); HEMOGLOBIN 10.4 g/dl (12.0-15.5); MEAN CORPUSCULAR HEMOGLOBIN 26.5 pg (27.0-33.0); MEAN CORPUSCULAR HGB CONC 31.9 g/dl (32.0-36.5); MEAN CORPUSCULAR VOLUME 83.2 fl (80.0-96.0); PLATELET COUNT, AUTOMATED 350 10^3/uL (150-450); RED BLOOD COUNT 3.92 10^6/uL (4.00-5.40); WHITE BLOOD COUNT 14.3 10^3/uL (4.0-10.0)
[2022-02-01 11:37] LABS: ALT/SGPT 64 U/L (12-78); BILIRUBIN,TOTAL 0.4 MG/DL (0.2-1.0); CREATININE FOR GFR 0.68 MG/DL (0.55-1.30); GLOMERULAR FILTRATION RATE > 60.0 (>60); LDH LACTATE DEHYDROGENASE 299 U/L (84-246); URIC ACID 5.7 MG/DL (2.6-6.0)
[2022-02-01 18:23] LABS: CREATININE,RANDOM URINE 66.5 MG/DL; TOTAL PROTEIN,RANDOM URINE 49.1 MG/DL (0.0-12.0)
[2022-02-01] MEDS: IBUPROFEN 800 MG TAB PO PRN (22:07)
[2022-02-02] VITALS (9 sets, daily range): BP systolic 99–185; BP diastolic 55–113
[2022-02-02] MEDS: PRENATAL VITAMINS CHEWABLE TABLET PO SCH (09:30)
[2022-02-02] MEDS: LABETALOL 200 MG TAB PO SCH (09:31)
[2022-02-02] MEDS ORDERED: NIFEdipine 10 MG CAP PO ONE (11:15)
[2022-02-02] MEDS ORDERED: ONDANSETRON 4MG TAB PO PRN (11:25)
[2022-02-02] MEDS ORDERED: NIFEdipine 30 MG XL TAB PO SCH (13:00)
[2022-02-02] MEDS ORDERED: NIFE1TAB52 PO (18:46)
[2022-02-02] MEDS ORDERED: LABE20TAB PO (18:46)
[2022-02-02] MEDS ORDERED: IBUP80TA PO (18:46)
[2022-02-02] MEDS ORDERED: ONDA-83 PO (18:47)
== END 2022-02-02 20:00 | disposition home or self-care (01) | DRG 560 ==
LOC: M LDO 08:35 → M LDI 14:07 → M OBS 01-31
PROVIDERS: ADMIT Advanced Practice Midwife; ATTEND Advanced Practice Midwife
PROC: 10E0XZZ Delivery of Products of Conception, External Approach (ICD-10-PCS; principal; 2022-01-30)
PROC: 0HQ9XZZ Repair Perineum Skin, External Approach (ICD-10-PCS; 2022-01-30)
PROC: 3E0P7GC Introduction of Other Therapeutic Substance into Female Reproductive, Via Natural or Artificial Opening (ICD-10-PCS; 2022-01-30)
DX: O13.4 Gestational [pregnancy-induced] hypertension without significant proteinuria, complicating childbirth (principal); O70.0 First degree perineal laceration during delivery; Z3A.38 38 weeks gestation of pregnancy; Z37.0 Single live birth

== ENCOUNTER → 2022-04-16 | Outpatient (CLI) | payer OTHER ==
[~2022-04-16] MED LIST changes: +IBUP80TA PO; +LABE20TAB PO; +NIFE1TAB52 PO; +ONDA-83 PO
== END ==
LOC: M LABSMTC 11:35
PROVIDERS: ATTEND Pediatrics
DX: Z11.52 Encounter for screening for COVID-19 (principal)